=== PATIENT | male | born 1930 | race Caucasian/White ===

== ENCOUNTER 2017-03-16 19:41 | Inpatient (IN) | payer MEDICARE, MEDICAID ==
--- NOTE | 2017-03-16 20:08 | EDM.PDOC ---
[id number] injury Time Seen by Provider: 03/16/17 20:00 Source of Information: Reports: Patient, EMS History Limitations: Reports: No Limitations - History of Present Illness INITIAL COMMENTS - FREE TEXT/NARRATIVE: 86-year-old male who apparently has been weaker over the past 2 days was in his bathroom when he became too weak to stand. He felt himself falling so he lowered himself to the floor slowly and did not get hurt. He was unable to get up however and his niece found him after 15 minutes on the floor. The ambulance was called. She thinks he has worsened left-sided facial weakness and dysarthria, however he does not have his dentures in. He denies any pain, injury, shortness or breath but has had some nausea. He is now oriented and denies any symptoms. His O2 saturations are only 85% on room air. His chest does sound congested. He also seems to have a strong odor to the urine. He was incontinent while on the floor. Severity: Moderate Associated Symptoms: Reports: Cough, Malaise, Nausea/Vomiting, Weakness. Denies : Chest Pain, Fever/Chills, Headaches, Shortness of Breath Denies Pain Score (Numeric/FACES): 0 - Related Data Allergies Allergy/AdvReac Type Severity Reaction Status Date / Time Cephalosporins Allergy Hives Verified 03/16/17 19:46 codeine Allergy Hives Verified 03/16/17 19:46 Penicillins Allergy Hives Verified 03/16/17 19:46 dicydonine Allergy Cannot Uncoded 03/16/17 19:46 Remember Home Meds: Home Meds Aspirin 325 mg PO DAILY 01/09/14 [History] DULoxetine [Cymbalta] 60 mg PO DAILY 01/09/14 [History] Digoxin 0.125 mg PO DAILY 01/09/14 [History] Docusate Sodium [Colace] 1 - 3 cap PO ASDIRECTED PRN 01/09/14 [History] Doxazosin [Cardura] 1 mg PO DAILY 01/09/14 [History] Furosemide 10 mg PO DAILY 01/09/14 [History] Lisinopril 5 mg PO DAILY 01/09/14 [History] Nitroglycerin [Nitrostat] 0.4 mg SL ASDIRECTED 01/09/14 [History] Omeprazole 20 mg PO DAILY 01/09/14 [History] Warfarin [Coumadin] 7 mg PO ASDIRECTED 01/09/14 [History] Warfarin [Coumadin] 8 mg PO ASDIRECTED 01/09/14 [History] atorvaSTATin [Lipitor] 40 mg PO BEDTIME 01/09/14 [History] Canagliflozin [Invokana] 300 mg PO DAILY 05/03/15 [History] [place]/Min Oil/Claudine/Wool Alcoh [Eucerin Creme] 1 applic TOP TID PRN 05/03/15 [ History] Linagliptin [Tradjenta] 5 mg PO DAILY 05/03/15 [History] Tamsulosin [Flomax] 0.4 mg PO DAILY 05/03/15 [History] Triamcinolone Acetonide [Triamcinolone Acetonide 0.1% Crm] 1 applic TOP TID PRN 05/03/15 [History] metFORMIN [Glucophage] 500 mg PO BID 05/03/15 [History] Omeprazole 20 mg PO DAILY 03/16/17 [History] Papaya [Papaya Enzyme] 2 each PO TID 03/16/17 [History] Past Medical History Cardiovascular History: Reports: Afib, Hypertension Musculoskeletal History: Reports: Arthritis Endocrine/Metabolic History: Reports: Diabetes, Type II Other Dermatologic History: light red rash noted to left lower leg - Past Surgical History Other Cardiovascular Surgeries/Procedures: Pacemaker Social & Family History - Tobacco Use Smoking Status *Q: Never Smoker Second Hand Smoke Exposure: No - Caffeine Use Caffeine Use: Reports: Coffee - Alcohol Use Days Per Week of Alcohol Use: 0 - Recreational Drug Use Recreational Drug Use: No ED ROS GENERAL - Review of Systems Review Of Systems: See Below Constitutional: Reports: Malaise, Weakness. Denies: Fever, Chills HEENT: Reports: Other (Left facial drooping more pronounced than baseline, dysarthria) Respiratory: Reports: Cough. Denies: Shortness of Breath Cardiovascular: Denies: Chest Pain GI/Abdominal: Reports: Nausea. Denies: Abdominal Pain, Vomiting : Reports: Other (Patient denies symptoms but he has a strong urine odor) Skin: Reports: No Symptoms Neurological: Reports: Other (Weakness, near-syncope, dysarthria and left-sided weakness) Psychiatric: Reports: No Symptoms ED EXAM, GENERAL - Physical Exam Exam: See Below Exam Limited By: No Limitations General Appearance: Alert, No Apparent Distress Eye Exam: Bilateral Eye: EOMI Throat/Mouth: Other (There is some noticeable left-sided perioral weakness and drooping but this may be baseline) Head: Atraumatic Neck: Non-Tender Respiratory/Chest: No Respiratory Distress, Rales (Perihilar rales are heard bilateral) Cardiovascular: Regular Rate, Rhythm GI/Abdominal: Soft, Non-Tender Extremities: Pedal Edema (Just a trace of ankle edema bilateral, symmetric) Neurological: Alert, Oriented Psychiatric: Flat Affect Skin Exam: Warm, Dry Course - Vital Signs Last Recorded V/S: Last Vital Signs Temp 101.1 F H 03/16/17 23:39 Pulse 61 03/16/17 22:47 Resp 22 H 03/16/17 22:47 BP 147/82 H 03/16/17 22:47 Pulse Ox 93 L 03/16/17 22:47 - Orders/Labs/Meds Orders: Active Orders 24 hr Category Date Time Status Chest 1V Frontal [CR] Stat Exams 03/16/17 19:55 Taken Head wo Cont [CT] Stat Exams 03/16/17 19:58 Taken Medication Orders Acetaminophen (Tylenol) 650 mg PO Q4H PRN PRN Reason: Pain/Fever Last Admin: 03/16/17 23:39 Dose: 650 mg Aspirin (Ecotrin) 325 mg PO DAILY [facility] Last Admin: 03/16/17 22:54 Dose: Atorvastatin Calcium (Lipitor) 40 mg PO BEDTIME [facility] Docusate Sodium (Colace) 100 - 300 mg PO DAILY PRN PRN Reason: Constipation Duloxetine HCl (Cymbalta) 60 mg PO DAILY [facility] Furosemide (Lasix) 10 mg PO DAILY [facility] Azithromycin 500 mg/ Sodium (Chloride) 250 mls @ 250 mls/hr IV Q24H [facility] Levofloxacin/Dextrose 500 mg/ (Premix) 100 mls @ 100 mls/hr IV Q24H [facility] Last Admin: 03/16/17 23:58 Dose: 100 mls/hr Linagliptin (Tradjenta) 5 mg PO DAILY [facility] Lisinopril (Prinivil) 5 mg PO DAILY [facility] Metformin HCl (Glucophage) 500 mg PO BIDMEALS [facility] Nitroglycerin (Nitrostat) 0.4 mg SL ASDIRECTED PRN PRN Reason: Chest Pain Non-Formulary Medication (Canagliflozin [Invokana]) 300 mg PO DAILY JOHN Non-Formulary Medication ([place]/Min Oil/Claudine/Wool Alcoh [Eucerin Creme]) 1 applic TOP TID PRN PRN Reason: Rash Non-Formulary Medication (Doxazosin [Cardura]) 1 mg PO DAILY JOHN Non-Formulary Medication (Papaya [Papaya Enzyme]) 2 each PO TID JOHN Pantoprazole Sodium (Protonix) 40 mg PO ACBREAKFAST JOHN Sodium Chloride (Saline Flush) 10 ml FLUSH ASDIRECTED PRN PRN Reason: Keep Vein Open Tamsulosin HCl (Flomax) 0.4 mg PO DAILY JOHN Triamcinolone Acetonide (Triamcinolone Acetonide 0.1% Crm) 0 gm TOP TID PRN PRN Reason: Rash Warfarin Sodium (Coumadin) 8 mg PO ASDIRECTED JOHN Warfarin Sodium (Coumadin) 7 mg PO ASDIRECTED JOHN Labs: Laboratory Tests 03/16/17 03/16/17 03/16/17 Range/Units 20:08 20:08 20:32 WBC 11.1 H (4.5-11.0) K/uL RBC 5.48 (4.30-5.90) M/uL Hgb 16.4 H (12.0-15.0) g/dL Hct 47.5 (40.0-54.0) % MCV 87 (80-98) fL MCH 30 (27-31) pg MCHC 35 (32-36) % Plt Count 158 (150-400) K/uL Neut % (Auto) 86 H (36-66) % Lymph % (Auto) 5 L (24-44) % [place] % (Auto) 9 H (2-6) % Eos % (Auto) 0 L (2-4) % Baso % (Auto) 1 (0-1) % Sodium 136 L (140-148) mmol/L Potassium 4.3 (3.6-5.2) mmol/L Chloride 98 L (100-108) mmol/L Carbon Dioxide 25 (21-32) mmol/L Anion Gap 17.3 H (5.0-14.0) mmol/L BUN 22 H (7-18) mg/dL Creatinine 1.3 (0.8-1.3) mg/dL Est Cr Clr Drug Dosing 44.77 mL/min Estimated GFR (MDRD) 52 L (>60) Glucose 238 H (74-106) mg/dL Calcium 9.0 (8.5-10.1) mg/dL Total Bilirubin 1.2 H (0.2-1.0) mg/dL AST 30 (15-37) U/L ALT 42 (12-78) U/L Alkaline Phosphatase 116 (46-116) U/L Troponin I 0.129 H* (0.000-0.056) ng/mL Total Protein 8.2 (6.4-8.2) g/dL Albumin 3.8 (3.4-5.0) g/dL Globulin 4.4 H (2.3-3.5) g/dL Albumin/Globulin Ratio 0.9 L (1.2-2.2) Urine Color Yellow Urine Appearance Cloudy Urine pH 5.0 (4.5-8.0) Ur Specific [place] 1.015 (1.008-1.030) Urine Protein Negative (NEGATIVE) mg/dL Urine Glucose (UA) 1000 H (NEGATIVE) mg/dL Urine Ketones 15 H (NEGATIVE) mg/dL Urine Occult Blood Negative (NEGATIVE) Urine Nitrite Negative (NEGAITVE) Urine Bilirubin Negative (NEGATIVE) Urine Urobilinogen Normal (NORMAL) mg/dL Ur Leukocyte Esterase Negative (NEGATIVE) Urine RBC 0-5 (0-5) Urine WBC 0-5 (0-5) Ur Epithelial Cells Few Amorphous Sediment Many Urine Bacteria Moderate Urine Mucus Not seen Meds: Medications Generic Name Dose Route Start Last Admin Trade Name Freq PRN Reason Stop Dose Admin Acetaminophen 650 mg 03/16/17 23:13 03/16/17 23:39 Tylenol PO 650 mg Q4H PRN Administration Pain/Fever Aspirin 325 mg 03/16/17 22:00 03/16/17 22:54 Ecotrin PO Not Given DAILY [facility] Atorvastatin Calcium 40 mg 03/17/17 21:00 Lipitor PO BEDTIME [facility] Docusate Sodium 100 - 300 mg 03/16/17 21:15 Colace PO DAILY PRN Constipation Duloxetine HCl 60 mg 03/17/17 09:00 Cymbalta PO DAILY [facility] Furosemide 10 mg 03/17/17 09:00 Lasix PO DAILY [facility] Azithromycin 500 mg/ Sodium 250 mls @ 250 mls/hr 03/17/17 01:00 Chloride IV Q24H [facility] Levofloxacin/Dextrose 500 mg/ 100 mls @ 100 mls/hr 03/17/17 00:00 03/16/17 23 :58 Premix IV 100 mls/hr Q24H [facility] Administration Linagliptin 5 mg 03/17/17 09:00 Tradjenta PO DAILY [facility] Lisinopril 5 mg 03/17/17 09:00 Prinivil PO DAILY [facility] Metformin HCl 500 mg 03/17/17 08:00 Glucophage PO BIDMEALS [facility] Nitroglycerin 0.4 mg 03/16/17 21:15 Nitrostat SL ASDIRECTED PRN Chest Pain Non-Formulary Medication 300 mg 03/17/17 09:00 Canagliflozin [Invokana] PO DAILY [facility] Non-Formulary Medication 1 applic 03/16/17 21:15 [place]/Min Oil/Claudine/Wool Alcoh [Eucerin Creme] TOP TID PRN Rash Non-Formulary Medication 1 mg 03/17/17 09:00 Doxazosin [Cardura] PO DAILY [facility] Non-Formulary Medication 2 each 03/17/17 09:00 Papaya [Papaya Enzyme] PO TID [facility] Pantoprazole Sodium 40 mg 03/17/17 07:30 Protonix PO ACBREAKFAST [facility] Sodium Chloride 10 ml 03/16/17 21:07 Saline Flush FLUSH ASDIRECTED PRN Keep Vein Open Tamsulosin HCl 0.4 mg 03/17/17 09:00 Flomax PO DAILY [facility] Triamcinolone Acetonide 0 gm 03/16/17 21:15 Triamcinolone Acetonide 0.1% Crm TOP TID PRN Rash Warfarin Sodium 8 mg 03/16/17 21:15 Coumadin PO ASDIRECTED JOHN Warfarin Sodium 7 mg 03/16/17 21:15 Coumadin PO ASDIRECTED [facility] Discontinued Medications Generic Name Dose Route Start Last Admin Trade Name Freq PRN Reason Stop Dose Admin Digoxin 125 mcg 03/17/17 09:00 Lanoxin PO DAILY [facility] Non-Formulary Medication 20 mg 03/17/17 09:00 Omeprazole [Omeprazole] PO DAILY [facility] - Re-Assessments/Exams Free Text/Narrative Re-Assessment/Exam: 03/16/17 20:08 Portable chest x-ray was obtained which showed cardiomegaly but no infiltrate. CBC, CMP, troponin and UA were obtained, and a CT of head without contrast. 03/16/17 20:53 Troponin was elevated at 0.12. Glucose is 238. Urine showed glucose but no infection. CT of his head showed no acute findings. I discussed his condition with Dr. Clark, his primary provider and he agreed to admit him to follow serial troponins and observe him for any changes. Departure - Departure Time of Disposition: 23:08 Disposition: Admitted As Inpatient 66 Condition: fair Clinical Impression: High blood sugar, Elevated troponin level, Weakness generalized - Discharge Information - My Orders Last 24 Hours: My Active Orders 03/16/17 19:55 Chest 1V Frontal [CR] Stat 03/16/17 19:58 Head wo Cont [CT] Stat - Assessment/Plan Last 24 Hours: My Active Orders 03/16/17 19:55 Chest 1V Frontal [CR] Stat 03/16/17 19:58 Head wo Cont [CT] Stat
[2017-03-16] MEDS ORDERED: Sodium Chloride 0.9% 10 ML Syringe FLUSH PRN (21:07)
[2017-03-16] MEDS ORDERED: Nitroglycerin 0.4 MG Tab.SL SL PRN (21:15)
[2017-03-16] MEDS ORDERED: Docusate Sodium 100 MG Cap PO PRN (21:15)
[2017-03-16] MEDS ORDERED: Warfarin 3 MG Tab PO SCH (21:15)
[2017-03-16] MEDS ORDERED: [UNRECOGNIZED DRUG - OTHER] TOP PRN (21:15)
[2017-03-16] MEDS ORDERED: Triamcinolone Acetonide 0.1% Crm 15 GM Tube TOP PRN (21:15)
--- NOTE | 2017-03-16 21:26 | PCM.HP ---
H&P History of Present Illness - General Date of Service: 03/05/17 Admit Problem/Dx: Admission Diagnosis/Problem Admission Diagnosis/Problem Weakness Source of Information: Patient - History of Present Illness Initial Comments - Free Text/Narative: Alexandra comes in because of generalized weakness and had fallen at home. He did not faint but was weak. While in the ER he was found to have an elevation of Trop. and was admitted as he was too weak to go home. He is a DNR. He was unsafe to care for himself at home. I had seen him earlier today and was incontinent of urine. Onset of Symptoms: Reports: Gradual Duration of Symptoms: Reports: Day(s): Associated Symptoms: Reports: Weakness Denies Pain Score (Numeric/FACES): 0 - Related Data Allergies/Adverse Reactions: Allergies Allergy/AdvReac Type Severity Reaction Status Date / Time Cephalosporins Allergy Hives Verified 03/16/17 19:46 codeine Allergy Hives Verified 03/16/17 19:46 Penicillins Allergy Hives Verified 03/16/17 19:46 dicydonine Allergy Cannot Uncoded 03/16/17 19:46 Remember Home Medications: Home Meds Aspirin 325 mg PO DAILY 01/09/14 [History] DULoxetine [Cymbalta] 60 mg PO DAILY 01/09/14 [History] Digoxin 0.125 mg PO DAILY 01/09/14 [History] Docusate Sodium [Colace] 1 - 3 cap PO ASDIRECTED PRN 01/09/14 [History] Doxazosin [Cardura] 1 mg PO DAILY 01/09/14 [History] Furosemide 10 mg PO DAILY 01/09/14 [History] Lisinopril 5 mg PO DAILY 01/09/14 [History] Nitroglycerin [Nitrostat] 0.4 mg SL ASDIRECTED 01/09/14 [History] Omeprazole 20 mg PO DAILY 01/09/14 [History] Warfarin [Coumadin] 7 mg PO ASDIRECTED 01/09/14 [History] Warfarin [Coumadin] 8 mg PO ASDIRECTED 01/09/14 [History] atorvaSTATin [Lipitor] 40 mg PO BEDTIME 01/09/14 [History] Canagliflozin [Invokana] 300 mg PO DAILY 05/03/15 [History] [place]/Min Oil/Claudine/Wool Alcoh [Eucerin Creme] 1 applic TOP TID PRN 05/03/15 [ History] Linagliptin [Tradjenta] 5 mg PO DAILY 05/03/15 [History] Tamsulosin [Flomax] 0.4 mg PO DAILY 05/03/15 [History] Triamcinolone Acetonide [Triamcinolone Acetonide 0.1% Crm] 1 applic TOP TID PRN 05/03/15 [History] metFORMIN [Glucophage] 500 mg PO BID 05/03/15 [History] Omeprazole 20 mg PO DAILY 03/16/17 [History] Papaya [Papaya Enzyme] 2 each PO TID 03/16/17 [History] Past Medical History HEENT History: 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, Impaired Vision Other HEENT History: Hearing aide Cardiovascular History: Reports: Afib, Hypertension Other Cardiovascular History: cardiac dysrhythmias Musculoskeletal History: Reports: Arthritis Endocrine/Metabolic History: Reports: Diabetes, Type II Other Dermatologic History: light red rash noted to left lower leg - Infectious Disease History Infectious Disease History: Reports: C-Difficile, Measles, Mumps - Past Surgical History Other Cardiovascular Surgeries/Procedures: Pacemaker Social & Family History - Tobacco Use Smoking Status *Q: Never Smoker Second Hand Smoke Exposure: No - Caffeine Use Caffeine Use: Reports: Coffee - Alcohol Use Days Per Week of Alcohol Use: 0 - Recreational Drug Use Recreational Drug Use: No H&P Review of Systems - Review of Systems: Review Of Systems: See Below General: Reports: Weakness, Fatigue HEENT: Reports: No Symptoms Pulmonary: Reports: Shortness of Breath Cardiovascular: Reports: Dyspnea on Exertion, Lightheadedness Gastrointestinal: Reports: No Symptoms Genitourinary: Reports: Incontinence Neurological: Reports: Dizziness Exam - Exam Exam: See Below - Vital Signs Vital Signs: Last Vital Signs Temp 97.9 F 03/16/17 20:44 Pulse 60 03/16/17 21:00 Resp 22 H 03/16/17 21:00 BP 157/56 H 03/16/17 21:00 Pulse Ox 91 L 03/16/17 21:00 Weight: 214 lb - Exam General: Alert, Oriented, Cooperative, Mild Distress HEENT: PERRLA Neck: Supple, Trachea Midline, 2 Lungs: Clear to Auscultation, Normal Respiratory Effort Abdomen: Normal Bowel Sounds, Soft Extremities: Edema Peripheral Pulses: 1+: Radial (L), Radial (R) Skin: Warm, Dry, Intact Neurological: Cranial Nerves Intact, Reflexes Equal Bilateral Neuro Extensive - Mental Status: Alert, Oriented x3, Normal Cognition DTR: 1+: Bicep (L), Bicep (R) Psychiatric: Normal Affect, Labile Mood - Patient Data Lab Results last 24 hrs: Laboratory Results - last 24 hr 03/16/17 03/16/17 03/16/17 Range/Units 20:08 20:08 20:32 WBC 11.1 H (4.5-11.0) K/uL RBC 5.48 (4.30-5.90) M/uL Hgb 16.4 H (12.0-15.0) g/dL Hct 47.5 (40.0-54.0) % MCV 87 (80-98) fL MCH 30 (27-31) pg MCHC 35 (32-36) % Plt Count 158 (150-400) K/uL Neut % (Auto) 86 H (36-66) % Lymph % (Auto) 5 L (24-44) % [place] % (Auto) 9 H (2-6) % Eos % (Auto) 0 L (2-4) % Baso % (Auto) 1 (0-1) % Sodium 136 L (140-148) mmol/L Potassium 4.3 (3.6-5.2) mmol/L Chloride 98 L (100-108) mmol/L Carbon Dioxide 25 (21-32) mmol/L Anion Gap 17.3 H (5.0-14.0) mmol/L BUN 22 H (7-18) mg/dL Creatinine 1.3 (0.8-1.3) mg/dL Est Cr Clr Drug Dosing 44.77 mL/min Estimated GFR (MDRD) 52 L (>60) Glucose 238 H (74-106) mg/dL Calcium 9.0 (8.5-10.1) mg/dL Total Bilirubin 1.2 H (0.2-1.0) mg/dL AST 30 (15-37) U/L ALT 42 (12-78) U/L Alkaline Phosphatase 116 (46-116) U/L Troponin I 0.129 H* (0.000-0.056) ng/mL Total Protein 8.2 (6.4-8.2) g/dL Albumin 3.8 (3.4-5.0) g/dL Globulin 4.4 H (2.3-3.5) g/dL Albumin/Globulin Ratio 0.9 L (1.2-2.2) Urine Color Yellow Urine Appearance Cloudy Urine pH 5.0 (4.5-8.0) Ur Specific [place] 1.015 (1.008-1.030) Urine Protein Negative (NEGATIVE) mg/dL Urine Glucose (UA) 1000 H (NEGATIVE) mg/dL Urine Ketones 15 H (NEGATIVE) mg/dL Urine Occult Blood Negative (NEGATIVE) Urine Nitrite Negative (NEGAITVE) Urine Bilirubin Negative (NEGATIVE) Urine Urobilinogen Normal (NORMAL) mg/dL Ur Leukocyte Esterase Negative (NEGATIVE) Urine RBC 0-5 (0-5) Urine WBC 0-5 (0-5) Ur Epithelial Cells Few Amorphous Sediment Many Urine Bacteria Moderate Urine Mucus Not seen Result Diagrams: 03/16/17 20:08 03/16/17 20:08 *Q Meaningful Use (ADM) - VTE *Q VTE Criteria *Q: - Stroke *Q Stroke Criteria *Q: - AMI *Q AMI Criteria *Q: Problem List Initiated/Reviewed/Updated: Yes Orders Last 24hrs: Active Orders 24 hr Category Date Time Status Patient Status [ADT] Routine ADT 03/16/17 21:07 Ordered Ambulate [RC] QID Care 03/16/17 21:07 Ordered Blood Glucose Check, Bedside [RC] QIDACANDBED Care 03/16/17 21:07 Ordered Height and Weight [RC] DAILY Care 03/16/17 21:07 Ordered Intake and Output [RC] QSHIFT Care 03/16/17 21:10 Ordered Oxygen Therapy [RC] PRN Care 03/16/17 21:07 Ordered Up ad [place] [RC] ASDIRECTED Care 03/16/17 21:07 Ordered Up to Chair [RC] QID Care 03/16/17 21:07 Ordered VTE/DVT Education [RC] Per Unit Routine Care 03/16/17 21:07 Ordered Vital Signs [RC] Q4H Care 03/16/17 21:07 Ordered PT Evaluation and Treatment [CONS] Routine Cons 03/16/17 21:07 Ordered Consistent Carbohydrate Diet [DIET] Diet 03/17/17 Breakfast Ordered Chest 1V Frontal [CR] Stat Exams 03/16/17 19:55 Taken Head wo Cont [CT] Stat Exams 03/16/17 19:58 Taken CK W CKMB [CHEM] Routine Lab 03/17/17 05:11 Ordered TROPONIN I [CHEM] Routine Lab 03/17/17 05:11 Ordered Aspirin [Aspirin] Med 03/17/17 09:00 Ordered 325 mg PO DAILY Canagliflozin [Invokana] Med 03/17/17 09:00 Ordered 300 mg PO DAILY [place]/Min Oil/Claudine/Wool Alcoh [Eucerin Creme] Med 03/16/17 21:15 Ordered 1 applic TOP TID PRN DULoxetine [Cymbalta] Med 03/17/17 09:00 Ordered 60 mg PO DAILY Digoxin [Lanoxin] Med 03/17/17 09:00 Ordered 125 mcg PO DAILY Docusate Sodium [Colace] Med 03/16/17 21:15 Ordered 1 - 3 cap PO DAILY PRN Doxazosin [Cardura] Med 03/17/17 09:00 Ordered 1 mg PO DAILY Furosemide [Lasix] Med 03/17/17 09:00 Ordered 10 mg PO DAILY Linagliptin Med 03/17/17 09:00 Ordered 5 mg PO DAILY Lisinopril [Prinivil] Med 03/17/17 09:00 Ordered 5 mg PO DAILY Nitroglycerin [Nitrostat] Med 03/16/17 21:15 Ordered 0.4 mg SL ASDIRECTED Omeprazole [Omeprazole] Med 03/17/17 09:00 Ordered 20 mg PO DAILY Omeprazole [Omeprazole] Med 03/17/17 09:00 Ordered 20 mg PO DAILY Papaya [Papaya Enzyme] Med 03/17/17 09:00 Ordered 2 each PO TID Sodium Chloride 0.9% [Saline Flush] Med 03/16/17 21:07 Ordered 10 ml FLUSH ASDIRECTED PRN Tamsulosin [Flomax] Med 03/17/17 09:00 Ordered 0.4 mg PO DAILY Triamcinolone Acetonide [Triamcinolone Acetonide 0.1% Med 03/16/17 21:15 Ordered Crm] 1 applic TOP TID PRN Warfarin [Coumadin] Med 03/16/17 21:15 Ordered 7 mg PO ASDIRECTED Warfarin [Coumadin] Med 03/16/17 21:15 Ordered 8 mg PO ASDIRECTED atorvaSTATin [Lipitor] Med 03/17/17 21:00 Ordered 40 mg PO BEDTIME metFORMIN [Glucophage] Med 03/17/17 09:00 Ordered 500 mg PO BID Saline Lock Insert [OM.PC] Routine Oth 03/16/17 21:07 Ordered Resuscitation Status Routine Resus Stat 03/16/17 21:07 Ordered Medication Orders Digoxin (Lanoxin) 125 mcg PO DAILY JOHN Docusate Sodium (Colace) mg PO DAILY PRN PRN Reason: Constipation Furosemide (Lasix) 10 mg PO DAILY JOHN Lisinopril (Prinivil) 5 mg PO DAILY JOHN Metformin HCl (Glucophage) 500 mg PO BID JOHN Nitroglycerin (Nitrostat) 0.4 mg SL ASDIRECTED JOHN Non-Formulary Medication (Aspirin [Aspirin]) 325 mg PO DAILY JOHN Non-Formulary Medication (Canagliflozin [Invokana]) 300 mg PO DAILY JOHN Non-Formulary Medication ([place]/Min Oil/Claudine/Wool Alcoh [Eucerin Creme]) 1 applic TOP TID PRN PRN Reason: Rash Non-Formulary Medication (Duloxetine [Cymbalta]) 60 mg PO DAILY JOHN Non-Formulary Medication (Doxazosin [Cardura]) 1 mg PO DAILY JOHN Non-Formulary Medication (Linagliptin) 5 mg PO DAILY JOHN Non-Formulary Medication (Omeprazole [Omeprazole]) 20 mg PO DAILY JOHN Non-Formulary Medication (Omeprazole [Omeprazole]) 20 mg PO DAILY JOHN Non-Formulary Medication (Papaya [Papaya Enzyme]) 2 each PO TID JOHN Non-Formulary Medication (Atorvastatin [Lipitor]) 40 mg PO BEDTIME [facility] Sodium Chloride (Saline Flush) 10 ml FLUSH ASDIRECTED PRN PRN Reason: Keep Vein Open Tamsulosin HCl (Flomax) 0.4 mg PO DAILY [facility] Triamcinolone Acetonide (Triamcinolone Acetonide 0.1% Crm) gm TOP TID PRN PRN Reason: Rash Warfarin Sodium (Coumadin) 8 mg PO ASDIRECTED JOHN Warfarin Sodium (Coumadin) 7 mg PO ASDIRECTED JOHN Assessment/Plan Comment:: Assessment/Plan: #1. ASHD. Trop is elevated and will repeat every 8 hrs times 2 more. #2. Generalized weakness: This is a chronic condition. #3. UTI. Urine showed bacteria and a culture is pending. Have also done blood cultures. #4. DM II. Will continue with the medicine. Has been poor control and gave earlier one injection of Trulicity. #5. Atrial Fib. This is chronic will continue with Coumadin. #6. HTN: Will continue with meds for blood pressure control. #7. COPD: Continue with meds. #8. HLD: Continue with same meds as cholesterol is stable, Lipitor #9. BPH: Chronic continue with the medicine. Will check residual of urine. #10. DJD: No med changes #11. Obesity: Will advise to lose wt. but it has been a struggle.
[2017-03-16] MEDS: Aspirin 325 MG Tab.EC PO SCH (22:54)
[2017-03-16] MEDS ORDERED: Acetaminophen 325 MG Tab PO PRN (23:13)
[2017-03-16] MEDS: Levofloxacin/Dextrose 5%-Water 500 MG in Premix Bag 1 BAG IV SCH (23:58)
[2017-03-17] MEDS: Azithromycin 500 MG in Sodium Chloride 0.9% 250 ML IV SCH (01:11)
[2017-03-17] MEDS ORDERED: Mineral Oil/White Petrolatum Crm 113 GM Jar TOP PRN (07:19)
--- NOTE | 2017-03-17 08:25 | CR ---
Chest 1V Frontal HISTORY: syncope COMPARISON: 07/16/2015 FINDINGS: Lungs appear clear and normally aerated. There is generalized cardiomegaly. Old median sternotomy ch anges and multiple mediastinal surgical clips are noted. Prosthetic heart valve is noted. Pacemaker generator overlies the left upper chest. Atrial and ventricular lead wires are intact and stable. No vascular redistribution or pleural fluid can be seen. Bony structures and soft tissues are unremark able. IMPRESSION: Mild cardiomegaly without evidence for decompensation. Old median sternotomy changes and prosthetic heart valve. Stable pacemaker and lead wires. No other acute chest abnormality is identified.
[2017-03-17] MEDS: Doxazosin 4 MG Tab PO SCH (08:32)
[2017-03-17] MEDS: Lisinopril 5 MG Tab PO SCH (08:32)
[2017-03-17] MEDS: Pantoprazole 40 MG Tab.CR PO SCH (08:33)
[2017-03-17] MEDS: metFORMIN 500 MG Tab PO SCH ×2 (08:33→17:18)
[2017-03-17] MEDS: Tamsulosin 0.4 MG Cap.ER PO SCH (08:33)
[2017-03-17] MEDS: DULoxetine 30 MG Cap PO SCH (08:33)
[2017-03-17] MEDS: Furosemide 20 MG Tab PO SCH (08:33)
[2017-03-17] MEDS: Aspirin 325 MG Tab.EC PO SCH (08:33)
[2017-03-17] MEDS ORDERED: PAPAYA PO SCH (09:00)
[2017-03-17] MEDS ORDERED: Digoxin 125 MCG Tab PO SCH (09:00)
[2017-03-17] MEDS ORDERED: DOXAZOSIN 1 MG PO SCH (09:00)
[2017-03-17] MEDS ORDERED: Non-Formulary Medication 1 Each (Canagliflozin [Invokana] 300 MG) PO SCH (09:00)
[2017-03-17] MEDS ORDERED: Non-Formulary Medication 1 Each (Omeprazole [Omeprazole] 20 MG) PO SCH (09:00)
[2017-03-17] MEDS ORDERED: Furosemide 20 MG/2 ML VIAL IVPUSH ONE (16:00)
[2017-03-17] MEDS: atorvaSTATin 20 MG Tab PO SCH (20:47)
[2017-03-17] MEDS: Albuterol/Ipratropium 3.0-0.5 MG/3 ML Neb Soln NEB PRN (20:52)
--- NOTE | 2017-03-17 22:22 | PCM.PN ---
- General Info Date of Service: 03/17/17 Admission Dx/Problem (Free Text): He did have shortness of breath this PM. He wants to go the the [place] when time for discharge. - Review of Systems General: Reports: Weakness HEENT: Reports: no symptoms Pulmonary: Reports: shortness of breath, cough Cardiovascular: Reports: Dyspnea on Exertion Gastrointestinal: Reports: Decreased appetite Musculoskeletal: Reports: joint pain Skin: Reports: no symptoms Neurological: Reports: Gait Disturbance - Patient Data Vitals - most recent: Last Vital Signs Temp 100.7 F H 03/17/17 19:00 Pulse 61 03/17/17 19:00 Resp 32 H 03/17/17 19:00 BP 109/59 L 03/17/17 15:26 Pulse Ox 90 L 03/17/17 19:00 Weight - most recent: 214 lb 8 oz I&O - last 24 hours: Intake & Output 03/17/17 03/17/17 03/17/17 06:59 14:59 22:59 Intake Total 2210 2040 240 Balance 2210 2040 240 Lab Results last 24 hrs: Laboratory Results - last 24 hr 03/17/17 03/17/17 03/17/17 Range/Units 04:45 04:45 11:25 WBC (4.5-11.0) K/uL RBC (4.30-5.90) M/uL Hgb (12.0-15.0) g/dL Hct (40.0-54.0) % MCV (80-98) fL MCH (27-31) pg MCHC (32-36) % Plt Count (150-400) K/uL Neut % (Auto) (36-66) % Lymph % (Auto) (24-44) % Grayson % (Auto) (2-6) % Eos % (Auto) (2-4) % Baso % (Auto) (0-1) % PT 21.6 H (9.5-12.0) sec INR 1.99 H (0.80-1.20) Sodium (140-148) mmol/L Potassium (3.6-5.2) mmol/L Chloride (100-108) mmol/L Carbon Dioxide (21-32) mmol/L Anion Gap (5.0-14.0) mmol/L BUN (7-18) mg/dL Creatinine (0.8-1.3) mg/dL Est Cr Clr Drug Dosing mL/min Estimated GFR (MDRD) (>60) Glucose (74-106) mg/dL Calcium (8.5-10.1) mg/dL Creatine Kinase 77 (39-308) U/L CK-MB (CK-2) 0.5 (0-3.6) mg/mL Troponin I 0.168 H* 0.138 H* (0.000-0.056) ng/mL 03/17/17 03/17/17 Range/Units 11:25 11:25 WBC 9.6 (4.5-11.0) K/uL RBC 4.93 (4.30-5.90) M/uL Hgb 15.2 H (12.0-15.0) g/dL Hct 43.0 (40.0-54.0) % MCV 87 (80-98) fL MCH 31 (27-31) pg MCHC 35 (32-36) % Plt Count 136 L (150-400) K/uL Neut % (Auto) 78 H (36-66) % Lymph % (Auto) 9 L (24-44) % Grayson % (Auto) 13 H (2-6) % Eos % (Auto) 0 L (2-4) % Baso % (Auto) 1 (0-1) % PT (9.5-12.0) sec INR (0.80-1.20) Sodium 132 L (140-148) mmol/L Potassium 3.7 (3.6-5.2) mmol/L Chloride 94 L (100-108) mmol/L Carbon Dioxide 26 (21-32) mmol/L Anion Gap 15.7 H (5.0-14.0) mmol/L BUN 32 H (7-18) mg/dL Creatinine 1.4 H (0.8-1.3) mg/dL Est Cr Clr Drug Dosing 41.63 mL/min Estimated GFR (MDRD) 48 L (>60) Glucose 199 H (74-106) mg/dL Calcium 8.1 L (8.5-10.1) mg/dL Creatine Kinase (39-308) U/L CK-MB (CK-2) (0-3.6) mg/mL Troponin I (0.000-0.056) ng/mL Med Orders - Current: Current Medications Acetaminophen (Tylenol) 650 mg PO Q4H PRN PRN Reason: Pain/Fever Last Admin: 03/16/17 23:39 Dose: 650 mg Albuterol/Ipratropium (Duoneb 3.0-0.5 Mg/3 Ml) 3 ml NEB Q4H PRN PRN Reason: Shortness of Breath Last Admin: 03/17/17 20:52 Dose: 3 ml Aspirin (Ecotrin) 325 mg PO DAILY [facility] Last Admin: 03/17/17 08:33 Dose: 325 mg Atorvastatin Calcium (Lipitor) 40 mg PO BEDTIME [facility] Last Admin: 03/17/17 20:47 Dose: 40 mg Docusate Sodium (Colace) 100 - 300 mg PO DAILY PRN PRN Reason: Constipation Doxazosin Mesylate (Cardura) 1 mg PO DAILY [facility] Last Admin: 03/17/17 08:32 Dose: 1 mg Duloxetine HCl (Cymbalta) 60 mg PO DAILY [facility] Last Admin: 03/17/17 08:33 Dose: 60 mg Furosemide (Lasix) 10 mg PO DAILY [facility] Last Admin: 03/17/17 08:33 Dose: 10 mg Azithromycin 500 mg/ Sodium (Chloride) 250 mls @ 250 mls/hr IV Q24H [facility] Last Admin: 03/17/17 01:11 Dose: 250 mls/hr Levofloxacin/Dextrose 500 mg/ (Premix) 100 mls @ 100 mls/hr IV Q24H [facility] Last Admin: 03/16/17 23:58 Dose: 100 mls/hr Linagliptin (Tradjenta) 5 mg PO DAILY [facility] Last Admin: 03/17/17 08:31 Dose: 5 mg Lisinopril (Prinivil) 5 mg PO DAILY [facility] Last Admin: 03/17/17 08:32 Dose: 5 mg Metformin HCl (Glucophage) 500 mg PO BIDMEALS [facility] Last Admin: 03/17/17 17:18 Dose: 500 mg Mineral Oil/White Petrolatum (Hydrocerin Crm) 0 gm TOP TID PRN PRN Reason: RASH Nitroglycerin (Nitrostat) 0.4 mg SL ASDIRECTED PRN PRN Reason: Chest Pain Non-Formulary Medication (Canagliflozin [Invokana]) 300 mg PO DAILY [facility] Non-Formulary Medication (Papaya [Papaya Enzyme]) 2 each PO TID [facility] Pantoprazole Sodium (Protonix) 40 mg PO ACBREAKFAST [facility] Last Admin: 03/17/17 08:33 Dose: 40 mg Sodium Chloride (Saline Flush) 10 ml FLUSH ASDIRECTED PRN PRN Reason: Keep Vein Open Tamsulosin HCl (Flomax) 0.4 mg PO DAILY [facility] Last Admin: 03/17/17 08:33 Dose: 0.4 mg Triamcinolone Acetonide (Triamcinolone Acetonide 0.1% Crm) 0 gm TOP TID PRN PRN Reason: Rash Warfarin Sodium 5 mg/ Warfarin (Sodium 2 mg) 7 mg PO SuTuThSa@1300 [facility] Last Admin: 03/17/17 14:10 Dose: 7 mg Warfarin Sodium 5 mg/ Warfarin (Sodium 3 mg) 8 mg PO MoWeFr@1300 [facility] Discontinued Medications Digoxin (Lanoxin) 125 mcg PO DAILY [facility] Furosemide (Lasix) 20 mg IVPUSH ONETIME ONE Stop: 03/17/17 16:01 Last Admin: 03/17/17 16:06 Dose: 20 mg Non-Formulary Medication (Omeprazole [Omeprazole]) 20 mg PO DAILY [facility] Warfarin Sodium (Coumadin) 8 mg PO ASDIRECTED [facility] Warfarin Sodium (Coumadin) 7 mg PO ASDIRECTED [facility] - Exam General: oriented, cooperative, mild distress Neck: supple Lungs: Decreased breath sounds Cardiovascular: Irregular Rhythm Abdomen: bowel sounds present, soft, no tenderness Back Exam: CVA Tenderness (L) Peripheral Pulses: 1+: Radial (L), Radial (R) Skin: warm, dry, intact - Problem List Review Problem List Initiated/Reviewed/Updated: Yes - My Orders Last 24 Hours: My Active Orders 03/16/17 22:00 Aspirin [Ecotrin] 325 mg PO DAILY 03/16/17 23:11 Blood Culture x2 Reflex Set [OM.PC] Urgent 03/16/17 23:13 Acetaminophen [Tylenol] 650 mg PO Q4H PRN 03/16/17 23:20 CULTURE BLOOD [BC] Urgent 03/16/17 23:25 CULTURE BLOOD [BC] Urgent 03/17/17 00:00 Levofloxacin/Dextrose 5%-Water [Levaquin in D5W 500 MG/100 ML] 500 mg Premix Bag 1 bag IV Q24H 03/17/17 01:00 Azithromycin [Zithromax] 500 mg Sodium Chloride 0.9% [Normal Saline] 250 ml IV Q24H 03/17/17 07:19 Mineral Oil/Petrolatum,White [Hydrocerin Crm] 0 gm TOP TID PRN 03/17/17 07:30 Pantoprazole [ProTONIX] 40 mg PO ACBREAKFAST 03/17/17 08:00 metFORMIN [Glucophage] 500 mg PO BIDMEALS 03/17/17 09:00 Canagliflozin [Invokana] 300 mg PO DAILY DULoxetine [Cymbalta] 60 mg PO DAILY Doxazosin [Cardura] 1 mg PO DAILY Furosemide [Lasix] 10 mg PO DAILY Linagliptin [Tradjenta] 5 mg PO DAILY Lisinopril [Prinivil] 5 mg PO DAILY Papaya [Papaya Enzyme] 2 each PO TID Tamsulosin [Flomax] 0.4 mg PO DAILY 03/17/17 13:00 Warfarin [Coumadin] 7 mg PO SuTuThSa@1300 03/17/17 15:39 RT Aerosol Therapy [RC] ASDIRECTED Albuterol/Ipratropium [DuoNeb 3.0-0.5 MG/3 ML] 3 ml NEB Q4H PRN 03/17/17 21:00 atorvaSTATin [Lipitor] 40 mg PO BEDTIME 03/18/17 07:30 GLUCOSE POC LAB TO COLLECT [POC] QIDACANDBED 03/18/17 11:30 GLUCOSE POC LAB TO COLLECT [POC] QIDACANDBED 03/18/17 13:00 Warfarin [Coumadin] 8 mg PO MoWeFr@1300 03/18/17 16:30 GLUCOSE POC LAB TO COLLECT [POC] QIDACANDBED 03/18/17 21:00 GLUCOSE POC LAB TO COLLECT [POC] QIDACANDBED 03/19/17 07:30 GLUCOSE POC LAB TO COLLECT [POC] QIDACANDBED 03/19/17 11:30 GLUCOSE POC LAB TO COLLECT [POC] QIDACANDBED 03/19/17 16:30 GLUCOSE POC LAB TO COLLECT [POC] QIDACANDBED 03/19/17 21:00 GLUCOSE POC LAB TO COLLECT [POC] QIDACANDBED 03/20/17 07:30 GLUCOSE POC LAB TO COLLECT [POC] QIDACANDBED 03/20/17 11:30 GLUCOSE POC LAB TO COLLECT [POC] QIDACANDBED 03/20/17 16:30 GLUCOSE POC LAB TO COLLECT [POC] QIDACANDBED 03/20/17 21:00 GLUCOSE POC LAB TO COLLECT [POC] QIDACANDBED 03/21/17 07:30 GLUCOSE POC LAB TO COLLECT [POC] QIDACANDBED 03/21/17 11:30 GLUCOSE POC LAB TO COLLECT [POC] QIDACANDBED 03/21/17 16:30 GLUCOSE POC LAB TO COLLECT [POC] QIDACANDBED 03/21/17 21:00 GLUCOSE POC LAB TO COLLECT [POC] QIDACANDBED 03/22/17 07:30 GLUCOSE POC LAB TO COLLECT [POC] QIDACANDBED 03/22/17 11:30 GLUCOSE POC LAB TO COLLECT [POC] QIDACANDBED 03/22/17 16:30 GLUCOSE POC LAB TO COLLECT [POC] QIDACANDBED 03/22/17 21:00 GLUCOSE POC LAB TO COLLECT [POC] QIDACANDBED 03/23/17 07:30 GLUCOSE POC LAB TO COLLECT [POC] QIDACANDBED 03/23/17 11:30 GLUCOSE POC LAB TO COLLECT [POC] QIDACANDBED 03/23/17 16:30 GLUCOSE POC LAB TO COLLECT [POC] QIDACANDBED 03/23/17 21:00 GLUCOSE POC LAB TO COLLECT [POC] QIDACANDBED 03/24/17 07:30 GLUCOSE POC LAB TO COLLECT [POC] QIDACANDBED 03/24/17 11:30 GLUCOSE POC LAB TO COLLECT [POC] QIDACANDBED 03/24/17 16:30 GLUCOSE POC LAB TO COLLECT [POC] QIDACANDBED 03/24/17 21:00 GLUCOSE POC LAB TO COLLECT [POC] QIDACANDBED 03/25/17 07:30 GLUCOSE POC LAB TO COLLECT [POC] QIDACANDBED 03/25/17 11:30 GLUCOSE POC LAB TO COLLECT [POC] QIDACANDBED 03/25/17 16:30 GLUCOSE POC LAB TO COLLECT [POC] QIDACANDBED - Plan Plan:: Assessment/Plan: #1. ASHD. Trop is elevated but decreasing. #2. Generalized weakness: This is a chronic condition. #3. UTI. Urine showed bacteria and a culture is pending. Have also done blood cultures. #4. DM II. Will continue with the medicine. Has been poor control and gave earlier one injection of Trulicity. #5. Atrial Fib. This is chronic will continue with Coumadin. #6. HTN: Will continue with meds for blood pressure control. #7. COPD: Continue with meds. I gave him extra Lasix today the reduce his water and decreased the IV fluid. Changed to a saline lock. #8. HLD: Continue with same meds as cholesterol is stable, Lipitor #9. BPH: Chronic continue with the medicine. Will check residual of urine. #10. DJD: No med changes #11. Obesity: Will advise to lose wt. but it has been a struggle.
[2017-03-18] MEDS: Levofloxacin/Dextrose 5%-Water 500 MG in Premix Bag 1 BAG IV SCH (00:07)
[2017-03-18] MEDS: Azithromycin 500 MG in Sodium Chloride 0.9% 250 ML IV SCH (01:12)
[2017-03-18] MEDS: Pantoprazole 40 MG Tab.CR PO SCH (07:08)
[2017-03-18] MEDS: metFORMIN 500 MG Tab PO SCH ×2 (07:08→16:53)
[2017-03-18] MEDS: Albuterol/Ipratropium 3.0-0.5 MG/3 ML Neb Soln NEB PRN (07:53)
[2017-03-18] MEDS: DULoxetine 30 MG Cap PO SCH (09:04)
[2017-03-18] MEDS: Lisinopril 5 MG Tab PO SCH (09:06)
[2017-03-18] MEDS: Tamsulosin 0.4 MG Cap.ER PO SCH (09:06)
[2017-03-18] MEDS: Furosemide 20 MG Tab PO SCH (09:06)
[2017-03-18] MEDS: Doxazosin 4 MG Tab PO SCH (09:07)
[2017-03-18] MEDS: Aspirin 325 MG Tab.EC PO SCH (09:07)
--- NOTE | 2017-03-18 20:03 | PCM.PN ---
- General Info Date of Service: 03/18/17 Functional Status: Reports: pain controlled - Review of Systems General: Reports: Weakness, Fatigue HEENT: Reports: no symptoms Pulmonary: Reports: shortness of breath Cardiovascular: Reports: No Symptoms Gastrointestinal: Reports: No symptoms Genitourinary: Reports: no symptoms Musculoskeletal: Reports: no symptoms Skin: Reports: no symptoms Neurological: Reports: Difficulty Walking Psychiatric: Reports: no symptoms - Patient Data Vitals - most recent: Last Vital Signs Temp 97.3 F 03/18/17 19:00 Pulse 60 03/18/17 19:00 Resp 23 H 03/18/17 19:00 BP 111/57 L 03/18/17 19:00 Pulse Ox 93 L 03/18/17 19:00 Weight - most recent: 210 lb 4.8 oz I&O - last 24 hours: Intake & Output 03/18/17 03/18/17 03/18/17 06:59 14:59 22:59 Intake Total 350 480 240 Output Total 700 250 Balance 350 -220 -10 Lab Results last 24 hrs: Laboratory Results - last 24 hr 03/18/17 03/18/17 Range/Units 05:52 05:52 WBC 9.1 (4.5-11.0) K/uL RBC 5.08 (4.30-5.90) M/uL Hgb 15.2 H (12.0-15.0) g/dL Hct 43.8 (40.0-54.0) % MCV 86 (80-98) fL MCH 30 (27-31) pg MCHC 35 (32-36) % Plt Count 136 L (150-400) K/uL Neut % (Auto) 66 (36-66) % Lymph % (Auto) 17 L (24-44) % [place] % (Auto) 16 H (2-6) % Eos % (Auto) 1 L (2-4) % Baso % (Auto) 1 (0-1) % Sodium 134 L (140-148) mmol/L Potassium 3.8 (3.6-5.2) mmol/L Chloride 97 L (100-108) mmol/L Carbon Dioxide 27 (21-32) mmol/L Anion Gap 13.8 (5.0-14.0) mmol/L BUN 36 H (7-18) mg/dL Creatinine 1.2 (0.8-1.3) mg/dL Est Cr Clr Drug Dosing 48.57 mL/min Estimated GFR (MDRD) 57 L (>60) Glucose 159 H (74-106) mg/dL Calcium 8.0 L (8.5-10.1) mg/dL Troponin I 0.085 H* (0.000-0.056) ng/mL Ananth Results last 24 hrs: Microbiology 03/16/17 23:25 Aerobic Blood Culture - Preliminary Blood - Arm, Left NO GROWTH AFTER 1 DAY Anaerobic Blood Culture - Preliminary NO GROWTH AFTER 1 DAY 03/16/17 23:20 Aerobic Blood Culture - Preliminary Blood - Arm, Left NO GROWTH AFTER 1 DAY Anaerobic Blood Culture - Preliminary NO GROWTH AFTER 1 DAY Med Orders - Current: Current Medications Acetaminophen (Tylenol) 650 mg PO Q4H PRN PRN Reason: Pain/Fever Last Admin: 03/16/17 23:39 Dose: 650 mg Albuterol/Ipratropium (Duoneb 3.0-0.5 Mg/3 Ml) 3 ml NEB Q4H PRN PRN Reason: Shortness of Breath Last Admin: 03/18/17 07:53 Dose: 3 ml Aspirin (Ecotrin) 325 mg PO DAILY [facility] Last Admin: 03/18/17 09:07 Dose: 325 mg Atorvastatin Calcium (Lipitor) 40 mg PO BEDTIME [facility] Last Admin: 03/17/17 20:47 Dose: 40 mg Docusate Sodium (Colace) 100 - 300 mg PO DAILY PRN PRN Reason: Constipation Doxazosin Mesylate (Cardura) 1 mg PO DAILY [facility] Last Admin: 03/18/17 09:07 Dose: 1 mg Duloxetine HCl (Cymbalta) 60 mg PO DAILY [facility] Last Admin: 03/18/17 09:04 Dose: 60 mg Furosemide (Lasix) 10 mg PO DAILY [facility] Last Admin: 03/18/17 09:06 Dose: 10 mg Azithromycin 500 mg/ Sodium (Chloride) 250 mls @ 250 mls/hr IV Q24H [facility] Last Admin: 03/18/17 01:12 Dose: 250 mls/hr Levofloxacin/Dextrose 500 mg/ (Premix) 100 mls @ 100 mls/hr IV Q24H [facility] Last Admin: 03/18/17 00:07 Dose: 100 mls/hr Linagliptin (Tradjenta) 5 mg PO DAILY [facility] Last Admin: 03/18/17 09:05 Dose: 5 mg Lisinopril (Prinivil) 5 mg PO DAILY [facility] Last Admin: 03/18/17 09:06 Dose: 5 mg Metformin HCl (Glucophage) 500 mg PO BIDMEALS [facility] Last Admin: 03/18/17 16:53 Dose: 500 mg Mineral Oil/White Petrolatum (Hydrocerin Crm) 0 gm TOP TID PRN PRN Reason: RASH Nitroglycerin (Nitrostat) 0.4 mg SL ASDIRECTED PRN PRN Reason: Chest Pain Non-Formulary Medication (Canagliflozin [Invokana]) 300 mg PO DAILY [facility] Non-Formulary Medication (Papaya [Papaya Enzyme]) 2 each PO TID [facility] Pantoprazole Sodium (Protonix) 40 mg PO ACBREAKFAST [facility] Last Admin: 03/18/17 07:08 Dose: 40 mg Sodium Chloride (Saline Flush) 10 ml FLUSH ASDIRECTED PRN PRN Reason: Keep Vein Open Tamsulosin HCl (Flomax) 0.4 mg PO DAILY [facility] Last Admin: 03/18/17 09:06 Dose: 0.4 mg Triamcinolone Acetonide (Triamcinolone Acetonide 0.1% Crm) 0 gm TOP TID PRN PRN Reason: Rash Warfarin Sodium 5 mg/ Warfarin (Sodium 2 mg) 7 mg PO SuTuThSa@1300 [facility] Last Admin: 03/17/17 14:10 Dose: 7 mg Warfarin Sodium 5 mg/ Warfarin (Sodium 3 mg) 8 mg PO MoWeFr@1300 [facility] Last Admin: 03/18/17 13:20 Dose: 8 mg Discontinued Medications Digoxin (Lanoxin) 125 mcg PO DAILY [facility] Furosemide (Lasix) 20 mg IVPUSH ONETIME ONE Stop: 03/17/17 16:01 Last Admin: 03/17/17 16:06 Dose: 20 mg Non-Formulary Medication (Omeprazole [Omeprazole]) 20 mg PO DAILY [facility] Warfarin Sodium (Coumadin) 8 mg PO ASDIRECTED [facility] Warfarin Sodium (Coumadin) 7 mg PO ASDIRECTED [facility] - Exam General: alert, oriented HEENT: Pupils equal, Pupils reactive, EOMI, Mucous membr. moist/pink Neck: supple Lungs: Clear to auscultation, Normal respiratory effort Cardiovascular: Irregular Rhythm Peripheral Pulses: 1+: Radial (L), Radial (R) - Problem List Review Problem List Initiated/Reviewed/Updated: Yes - My Orders Last 24 Hours: My Active Orders 03/17/17 21:00 atorvaSTATin [Lipitor] 40 mg PO BEDTIME 03/18/17 13:00 Warfarin [Coumadin] 8 mg PO MoWeFr@1300 03/18/17 21:00 GLUCOSE POC LAB TO COLLECT [POC] QIDACANDBED 03/19/17 07:30 GLUCOSE POC LAB TO COLLECT [POC] QIDACANDBED 03/19/17 11:30 GLUCOSE POC LAB TO COLLECT [POC] QIDACANDBED 03/19/17 16:30 GLUCOSE POC LAB TO COLLECT [POC] QIDACANDBED 03/19/17 21:00 GLUCOSE POC LAB TO COLLECT [POC] QIDACANDBED 03/20/17 07:30 GLUCOSE POC LAB TO COLLECT [POC] QIDACANDBED 03/20/17 11:30 GLUCOSE POC LAB TO COLLECT [POC] QIDACANDBED 03/20/17 16:30 GLUCOSE POC LAB TO COLLECT [POC] QIDACANDBED 03/20/17 21:00 GLUCOSE POC LAB TO COLLECT [POC] QIDACANDBED 03/21/17 07:30 GLUCOSE POC LAB TO COLLECT [POC] QIDACANDBED 03/21/17 11:30 GLUCOSE POC LAB TO COLLECT [POC] QIDACANDBED 03/21/17 16:30 GLUCOSE POC LAB TO COLLECT [POC] QIDACANDBED 03/21/17 21:00 GLUCOSE POC LAB TO COLLECT [POC] QIDACANDBED 03/22/17 07:30 GLUCOSE POC LAB TO COLLECT [POC] QIDACANDBED 03/22/17 11:30 GLUCOSE POC LAB TO COLLECT [POC] QIDACANDBED 03/22/17 16:30 GLUCOSE POC LAB TO COLLECT [POC] QIDACANDBED 03/22/17 21:00 GLUCOSE POC LAB TO COLLECT [POC] QIDACANDBED 03/23/17 07:30 GLUCOSE POC LAB TO COLLECT [POC] QIDACANDBED 03/23/17 11:30 GLUCOSE POC LAB TO COLLECT [POC] QIDACANDBED 03/23/17 16:30 GLUCOSE POC LAB TO COLLECT [POC] QIDACANDBED 03/23/17 21:00 GLUCOSE POC LAB TO COLLECT [POC] QIDACANDBED 03/24/17 07:30 GLUCOSE POC LAB TO COLLECT [POC] QIDACANDBED 03/24/17 11:30 GLUCOSE POC LAB TO COLLECT [POC] QIDACANDBED 03/24/17 16:30 GLUCOSE POC LAB TO COLLECT [POC] QIDACANDBED 03/24/17 21:00 GLUCOSE POC LAB TO COLLECT [POC] QIDACANDBED 03/25/17 07:30 GLUCOSE POC LAB TO COLLECT [POC] QIDACANDBED 03/25/17 11:30 GLUCOSE POC LAB TO COLLECT [POC] QIDACANDBED 03/25/17 16:30 GLUCOSE POC LAB TO COLLECT [POC] QIDACANDBED - Plan Plan:: Assessment/Plan: #1. ASHD. Trop is elevated but decreasing. #2. Generalized weakness: This is a chronic condition. #3. UTI. Urine showed bacteria and a culture is pending. urine repeated tonight culture if needed #4. DM II. Will continue with the medicine. #5. Atrial Fib. This is chronic will continue with Coumadin. #6. HTN: Will continue with meds for blood pressure control. #7. COPD: Continue with meds. I gave him extra Lasix today the reduce his water and decreased the IV fluid. Changed to a saline lock. #8. HLD: Continue with same meds as cholesterol is stable, Lipitor #9. BPH: Chronic continue with the medicine. Will check residual of urine. #10. DJD: No med changes #11. Obesity: Will advise to lose wt. but it has been a struggle.
[2017-03-18] MEDS: atorvaSTATin 20 MG Tab PO SCH (21:59)
[2017-03-19] MEDS: Levofloxacin/Dextrose 5%-Water 500 MG in Premix Bag 1 BAG IV SCH (01:07)
[2017-03-19] MEDS: Azithromycin 500 MG in Sodium Chloride 0.9% 250 ML IV SCH (02:27)
[2017-03-19] MEDS: Pantoprazole 40 MG Tab.CR PO SCH (07:12)
[2017-03-19] MEDS: metFORMIN 500 MG Tab PO SCH (07:13)
--- NOTE | 2017-03-19 07:49 | PCM.PN ---
- General Info Date of Service: 03/19/17 Admission Dx/Problem (Free Text): He is feeling better today and sleeping better. Has no significant cough. Functional Status: Reports: pain controlled - Review of Systems General: Reports: Weakness, Fatigue HEENT: Reports: no symptoms Pulmonary: Reports: cough Cardiovascular: Reports: No Symptoms Gastrointestinal: Reports: No symptoms Genitourinary: Reports: no symptoms Musculoskeletal: Reports: no symptoms Skin: Reports: no symptoms Neurological: Reports: No Symptoms Psychiatric: Reports: no symptoms - Patient Data Vitals - most recent: Last Vital Signs Temp 96.0 F 03/19/17 07:05 Pulse 61 03/19/17 07:05 Resp 18 03/19/17 07:05 BP 139/66 03/19/17 07:05 Pulse Ox 94 L 03/19/17 07:05 Weight - most recent: 210 lb 4.8 oz I&O - last 24 hours: Intake & Output 03/18/17 03/19/17 03/19/17 22:59 06:59 14:59 Intake Total 240 Output Total 250 400 Balance -10 -400 Lab Results last 24 hrs: Laboratory Results - last 24 hr 03/18/17 03/19/17 Range/Units 21:30 04:50 PT 22.2 H (9.5-12.0) sec INR 2.05 H (0.80-1.20) Urine Color Yellow Urine Appearance Clear Urine pH 5.0 (4.5-8.0) Ur Specific [place] 1.020 (1.008-1.030) Urine Protein Negative (NEGATIVE) mg/dL Urine Glucose (UA) 1000 H (NEGATIVE) mg/dL Urine Ketones Negative (NEGATIVE) mg/dL Urine Occult Blood Negative (NEGATIVE) Urine Nitrite Negative (NEGAITVE) Urine Bilirubin Negative (NEGATIVE) Urine Urobilinogen Normal (NORMAL) mg/dL Ur Leukocyte Esterase Negative (NEGATIVE) Urine RBC 0-5 (0-5) Urine WBC 0-5 (0-5) Ur Epithelial Cells Few Amorphous Sediment Few Urine Bacteria Rare Urine Mucus Moderate Ananth Results last 24 hrs: Microbiology 03/16/17 23:25 Aerobic Blood Culture - Preliminary Blood - Arm, Left NO GROWTH AFTER 2 DAYS Anaerobic Blood Culture - Preliminary NO GROWTH AFTER 2 DAYS 03/16/17 23:20 Aerobic Blood Culture - Preliminary Blood - Arm, Left NO GROWTH AFTER 2 DAYS Anaerobic Blood Culture - Preliminary NO GROWTH AFTER 2 DAYS Med Orders - Current: Current Medications Acetaminophen (Tylenol) 650 mg PO Q4H PRN PRN Reason: Pain/Fever Last Admin: 03/16/17 23:39 Dose: 650 mg Albuterol/Ipratropium (Duoneb 3.0-0.5 Mg/3 Ml) 3 ml NEB Q4H PRN PRN Reason: Shortness of Breath Last Admin: 03/18/17 07:53 Dose: 3 ml Aspirin (Ecotrin) 325 mg PO DAILY [facility] Last Admin: 03/18/17 09:07 Dose: 325 mg Atorvastatin Calcium (Lipitor) 40 mg PO BEDTIME [facility] Last Admin: 03/18/17 21:59 Dose: 40 mg Docusate Sodium (Colace) 100 - 300 mg PO DAILY PRN PRN Reason: Constipation Doxazosin Mesylate (Cardura) 1 mg PO DAILY [facility] Last Admin: 03/18/17 09:07 Dose: 1 mg Duloxetine HCl (Cymbalta) 60 mg PO DAILY [facility] Last Admin: 03/18/17 09:04 Dose: 60 mg Furosemide (Lasix) 10 mg PO DAILY [facility] Last Admin: 03/18/17 09:06 Dose: 10 mg Azithromycin 500 mg/ Sodium (Chloride) 250 mls @ 250 mls/hr IV Q24H [facility] Last Admin: 03/19/17 02:27 Dose: 250 mls/hr Levofloxacin/Dextrose 500 mg/ (Premix) 100 mls @ 100 mls/hr IV Q24H [facility] Last Admin: 03/19/17 01:07 Dose: 100 mls/hr Lisinopril (Prinivil) 5 mg PO DAILY [facility] Last Admin: 03/18/17 09:06 Dose: 5 mg Metformin HCl (Glucophage) 500 mg PO BIDMEALS [facility] Last Admin: 03/19/17 07:13 Dose: 500 mg Mineral Oil/White Petrolatum (Hydrocerin Crm) 0 gm TOP TID PRN PRN Reason: RASH Nitroglycerin (Nitrostat) 0.4 mg SL ASDIRECTED PRN PRN Reason: Chest Pain Non-Formulary Medication (Canagliflozin [Invokana]) 300 mg PO DAILY [facility] Non-Formulary Medication (Papaya [Papaya Enzyme]) 2 each PO TID [facility] Pantoprazole Sodium (Protonix) 40 mg PO ACBREAKFAST [facility] Last Admin: 03/19/17 07:12 Dose: 40 mg Sodium Chloride (Saline Flush) 10 ml FLUSH ASDIRECTED PRN PRN Reason: Keep Vein Open Tamsulosin HCl (Flomax) 0.4 mg PO DAILY [facility] Last Admin: 03/18/17 09:06 Dose: 0.4 mg Triamcinolone Acetonide (Triamcinolone Acetonide 0.1% Crm) 0 gm TOP TID PRN PRN Reason: Rash Warfarin Sodium 5 mg/ Warfarin (Sodium 2 mg) 7 mg PO SuTuThSa@1300 [facility] Last Admin: 03/17/17 14:10 Dose: 7 mg Warfarin Sodium 5 mg/ Warfarin (Sodium 3 mg) 8 mg PO MoWeFr@1300 [facility] Last Admin: 03/18/17 13:20 Dose: 8 mg Discontinued Medications Digoxin (Lanoxin) 125 mcg PO DAILY [facility] Furosemide (Lasix) 20 mg IVPUSH ONETIME ONE Stop: 03/17/17 16:01 Last Admin: 03/17/17 16:06 Dose: 20 mg Linagliptin (Tradjenta) 5 mg PO DAILY [facility] Last Admin: 03/18/17 09:05 Dose: 5 mg Non-Formulary Medication (Omeprazole [Omeprazole]) 20 mg PO DAILY [facility] Warfarin Sodium (Coumadin) 8 mg PO ASDIRECTED [facility] Warfarin Sodium (Coumadin) 7 mg PO ASDIRECTED [facility] - Exam General: oriented, no acute distress HEENT: Pupils equal, Pupils reactive, EOMI, Mucous membr. moist/pink Neck: supple Lungs: Clear to auscultation, Normal respiratory effort Cardiovascular: Regular Rate, Regular Rhythm Abdomen: bowel sounds present, soft, no tenderness, no distension Peripheral Pulses: 1+: Radial (L), Radial (R) Skin: warm, dry, intact Neurological: no new focal deficit Psy/Mental Status: alert, normal mood - Problem List Review Problem List Initiated/Reviewed/Updated: Yes - My Orders Last 24 Hours: My Active Orders 03/18/17 13:00 Warfarin [Coumadin] 8 mg PO MoWeFr@1300 03/18/17 20:04 EKG 12 Lead [EK] Routine 03/18/17 20:05 EKG Documentation Completion [RC] ASDIRECTED 03/19/17 07:00 Echo Comp wo Cont [US] Routine 03/19/17 07:42 Ready for Discharge [RC] PER UNIT ROUTINE 03/19/17 09:00 Alogliptin Benzoate [Alogliptin] 12.5 mg PO DAILY 03/19/17 11:30 GLUCOSE POC LAB TO COLLECT [POC] QIDACANDBED 03/19/17 16:30 GLUCOSE POC LAB TO COLLECT [POC] QIDACANDBED 03/19/17 21:00 GLUCOSE POC LAB TO COLLECT [POC] QIDACANDBED 03/20/17 07:30 GLUCOSE POC LAB TO COLLECT [POC] QIDACANDBED 03/20/17 11:30 GLUCOSE POC LAB TO COLLECT [POC] QIDACANDBED 03/20/17 16:30 GLUCOSE POC LAB TO COLLECT [POC] QIDACANDBED 03/20/17 21:00 GLUCOSE POC LAB TO COLLECT [POC] QIDACANDBED 03/21/17 07:30 GLUCOSE POC LAB TO COLLECT [POC] QIDACANDBED 03/21/17 11:30 GLUCOSE POC LAB TO COLLECT [POC] QIDACANDBED 03/21/17 16:30 GLUCOSE POC LAB TO COLLECT [POC] QIDACANDBED 03/21/17 21:00 GLUCOSE POC LAB TO COLLECT [POC] QIDACANDBED 03/22/17 07:30 GLUCOSE POC LAB TO COLLECT [POC] QIDACANDBED 03/22/17 11:30 GLUCOSE POC LAB TO COLLECT [POC] QIDACANDBED 03/22/17 16:30 GLUCOSE POC LAB TO COLLECT [POC] QIDACANDBED 03/22/17 21:00 GLUCOSE POC LAB TO COLLECT [POC] QIDACANDBED 03/23/17 07:30 GLUCOSE POC LAB TO COLLECT [POC] QIDACANDBED 03/23/17 11:30 GLUCOSE POC LAB TO COLLECT [POC] QIDACANDBED 03/23/17 16:30 GLUCOSE POC LAB TO COLLECT [POC] QIDACANDBED 03/23/17 21:00 GLUCOSE POC LAB TO COLLECT [POC] QIDACANDBED 03/24/17 07:30 GLUCOSE POC LAB TO COLLECT [POC] QIDACANDBED 03/24/17 11:30 GLUCOSE POC LAB TO COLLECT [POC] QIDACANDBED 03/24/17 16:30 GLUCOSE POC LAB TO COLLECT [POC] QIDACANDBED 03/24/17 21:00 GLUCOSE POC LAB TO COLLECT [POC] QIDACANDBED 03/25/17 07:30 GLUCOSE POC LAB TO COLLECT [POC] QIDACANDBED 03/25/17 11:30 GLUCOSE POC LAB TO COLLECT [POC] QIDACANDBED 03/25/17 16:30 GLUCOSE POC LAB TO COLLECT [POC] QIDACANDBED - Plan Plan:: Assessment/Plan: #1. ASHD. Stable. #2. Generalized weakness: This is a chronic condition. #3. UTI. Urine showed rare bacteria, stable #4. DM II. Will continue with the medicine and changed to Alogliptin. #5. Atrial Fib. This is chronic will continue with Coumadin. Mostly a pacemaker rhythm #6. HTN: Will continue with meds for blood pressure control. #7. COPD: Continue with meds. #8. HLD: Continue with same meds as cholesterol is stable, Lipitor #9. BPH: Chronic continue with the medicine. #10. DJD: No med changes #11. Obesity: Will advise to lose wt. but it has been a struggle.
--- NOTE | 2017-03-19 07:56 | PCM.DCSUM1 ---
Discharge Summary - Discharge Data Discharge Date: 03/19/17 Discharge Disposition: DC[facility] Condition: Fair - Patient Summary/Data Hospital Course: Admitted for generalized weakness and near fainting at home. Hx of DM II and ASHD. - Patient Instructions Diet: Heart Healthy Diet, Diabetic Diet Activity: As Tolerated - Discharge Plan Prescriptions/Med Rec: Azithromycin [Zithromax] 500 mg IV Q24H #3 vial Home Medications: Home Meds Aspirin 325 mg PO DAILY 01/09/14 [History] DULoxetine [Cymbalta] 60 mg PO DAILY 01/09/14 [History] Digoxin 0.125 mg PO DAILY 01/09/14 [History] Docusate Sodium [Colace] 1 - 3 cap PO ASDIRECTED PRN 01/09/14 [History] Doxazosin [Cardura] 1 mg PO DAILY 01/09/14 [History] Furosemide 10 mg PO DAILY 01/09/14 [History] Lisinopril 5 mg PO DAILY 01/09/14 [History] Nitroglycerin [Nitrostat] 0.4 mg SL ASDIRECTED 01/09/14 [History] Omeprazole 20 mg PO DAILY 01/09/14 [History] Warfarin [Coumadin] 7 mg PO ASDIRECTED 01/09/14 [History] Warfarin [Coumadin] 8 mg PO ASDIRECTED 01/09/14 [History] atorvaSTATin [Lipitor] 40 mg PO BEDTIME 01/09/14 [History] Canagliflozin [Invokana] 300 mg PO DAILY 05/03/15 [History] [place]/Min Oil/Claudine/Wool Alcoh [Eucerin Creme] 1 applic TOP TID PRN 05/03/15 [ History] Linagliptin [Tradjenta] 5 mg PO DAILY 05/03/15 [History] Tamsulosin [Flomax] 0.4 mg PO DAILY 05/03/15 [History] Triamcinolone Acetonide [Triamcinolone Acetonide 0.1% Crm] 1 applic TOP TID PRN 05/03/15 [History] metFORMIN [Glucophage] 500 mg PO BID 05/03/15 [History] Omeprazole 20 mg PO DAILY 03/16/17 [History] Papaya [Papaya Enzyme] 2 each PO TID 03/16/17 [History] Alogliptin Benzoate [Alogliptin] 12.5 mg PO DAILY tablet 03/19/17 [Rx] Azithromycin [Zithromax] 500 mg IV Q24H #3 vial 03/19/17 [Rx] Referrals: Trav Clark Sr, MD [Primary Care Provider] - - Discharge Summary/Plan Comment DC Time >30 min.: Yes Discharge Summary/Plan Comment: Assessment/Plan: #1. ASHD. Stable. #2. Generalized weakness: This is a chronic condition. #3. UTI. Urine showed rare bacteria, stable #4. DM II. Will continue with the medicine and changed to Alogliptin. #5. Atrial Fib. This is chronic will continue with Coumadin. Mostly a pacemaker rhythm #6. HTN: Will continue with meds for blood pressure control. #7. COPD: Continue with meds. #8. HLD: Continue with same meds as cholesterol is stable, Lipitor #9. BPH: Chronic continue with the medicine. #10. DJD: No med changes #11. Obesity: Will advise to lose wt. but it has been a struggle. - Patient Data Vitals - Most Recent: Last Vital Signs Temp 96.0 F 03/19/17 07:05 Pulse 61 03/19/17 07:05 Resp 18 03/19/17 07:05 BP 139/66 03/19/17 07:05 Pulse Ox 94 L 03/19/17 07:05 Weight - Most Recent: 210 lb 4.8 oz I&O - Last 24 hours: Intake & Output 03/18/17 03/19/17 03/19/17 22:59 06:59 14:59 Intake Total 240 Output Total 250 400 Balance -10 -400 Lab Results - Last 24 hrs: Laboratory Results - last 24 hr 03/18/17 03/19/17 Range/Units 21:30 04:50 PT 22.2 H (9.5-12.0) sec INR 2.05 H (0.80-1.20) Urine Color Yellow Urine Appearance Clear Urine pH 5.0 (4.5-8.0) Ur Specific [place] 1.020 (1.008-1.030) Urine Protein Negative (NEGATIVE) mg/dL Urine Glucose (UA) 1000 H (NEGATIVE) mg/dL Urine Ketones Negative (NEGATIVE) mg/dL Urine Occult Blood Negative (NEGATIVE) Urine Nitrite Negative (NEGAITVE) Urine Bilirubin Negative (NEGATIVE) Urine Urobilinogen Normal (NORMAL) mg/dL Ur Leukocyte Esterase Negative (NEGATIVE) Urine RBC 0-5 (0-5) Urine WBC 0-5 (0-5) Ur Epithelial Cells Few Amorphous Sediment Few Urine Bacteria Rare Urine Mucus Moderate [facility] Results - Last 24 hrs: Microbiology 03/16/17 23:25 Aerobic Blood Culture - Preliminary Blood - Arm, Left NO GROWTH AFTER 2 DAYS Anaerobic Blood Culture - Preliminary NO GROWTH AFTER 2 DAYS 03/16/17 23:20 Aerobic Blood Culture - Preliminary Blood - Arm, Left NO GROWTH AFTER 2 DAYS Anaerobic Blood Culture - Preliminary NO GROWTH AFTER 2 DAYS Med Orders - Current: Current Medications Acetaminophen (Tylenol) 650 mg PO Q4H PRN PRN Reason: Pain/Fever Last Admin: 03/16/17 23:39 Dose: 650 mg Albuterol/Ipratropium (Duoneb 3.0-0.5 Mg/3 Ml) 3 ml NEB Q4H PRN PRN Reason: Shortness of Breath Last Admin: 03/18/17 07:53 Dose: 3 ml Aspirin (Ecotrin) 325 mg PO DAILY [facility] Last Admin: 03/18/17 09:07 Dose: 325 mg Atorvastatin Calcium (Lipitor) 40 mg PO BEDTIME [facility] Last Admin: 03/18/17 21:59 Dose: 40 mg Docusate Sodium (Colace) 100 - 300 mg PO DAILY PRN PRN Reason: Constipation Doxazosin Mesylate (Cardura) 1 mg PO DAILY [facility] Last Admin: 03/18/17 09:07 Dose: 1 mg Duloxetine HCl (Cymbalta) 60 mg PO DAILY [facility] Last Admin: 03/18/17 09:04 Dose: 60 mg Furosemide (Lasix) 10 mg PO DAILY [facility] Last Admin: 03/18/17 09:06 Dose: 10 mg Azithromycin 500 mg/ Sodium (Chloride) 250 mls @ 250 mls/hr IV Q24H [facility] Last Admin: 03/19/17 02:27 Dose: 250 mls/hr Levofloxacin/Dextrose 500 mg/ (Premix) 100 mls @ 100 mls/hr IV Q24H [facility] Last Admin: 03/19/17 01:07 Dose: 100 mls/hr Lisinopril (Prinivil) 5 mg PO DAILY [facility] Last Admin: 03/18/17 09:06 Dose: 5 mg Metformin HCl (Glucophage) 500 mg PO BIDMEALS [facility] Last Admin: 03/19/17 07:13 Dose: 500 mg Mineral Oil/White Petrolatum (Hydrocerin Crm) 0 gm TOP TID PRN PRN Reason: RASH Nitroglycerin (Nitrostat) 0.4 mg SL ASDIRECTED PRN PRN Reason: Chest Pain Non-Formulary Medication (Canagliflozin [Invokana]) 300 mg PO DAILY [facility] Non-Formulary Medication (Papaya [Papaya Enzyme]) 2 each PO TID [facility] Pantoprazole Sodium (Protonix) 40 mg PO ACBREAKFAST [facility] Last Admin: 03/19/17 07:12 Dose: 40 mg Sodium Chloride (Saline Flush) 10 ml FLUSH ASDIRECTED PRN PRN Reason: Keep Vein Open Tamsulosin HCl (Flomax) 0.4 mg PO DAILY [facility] Last Admin: 03/18/17 09:06 Dose: 0.4 mg Triamcinolone Acetonide (Triamcinolone Acetonide 0.1% Crm) 0 gm TOP TID PRN PRN Reason: Rash Warfarin Sodium 5 mg/ Warfarin (Sodium 2 mg) 7 mg PO SuTuThSa@1300 [facility] Last Admin: 03/17/17 14:10 Dose: 7 mg Warfarin Sodium 5 mg/ Warfarin (Sodium 3 mg) 8 mg PO MoWeFr@1300 [facility] Last Admin: 03/18/17 13:20 Dose: 8 mg Discontinued Medications Digoxin (Lanoxin) 125 mcg PO DAILY [facility] Furosemide (Lasix) 20 mg IVPUSH ONETIME ONE Stop: 03/17/17 16:01 Last Admin: 03/17/17 16:06 Dose: 20 mg Linagliptin (Tradjenta) 5 mg PO DAILY [facility] Last Admin: 03/18/17 09:05 Dose: 5 mg Non-Formulary Medication (Omeprazole [Omeprazole]) 20 mg PO DAILY [facility] Warfarin Sodium (Coumadin) 8 mg PO ASDIRECTED [facility] Warfarin Sodium (Coumadin) 7 mg PO ASDIRECTED [facility] *Q Meaningful Use (DIS) - VTE *Q VTE Criteria *Q: - Stroke *Q Stroke Criteria *Q: - AMI *Q AMI Criteria *Q:
[2017-03-19] MEDS: DULoxetine 30 MG Cap PO SCH (10:03)
[2017-03-19] MEDS: Tamsulosin 0.4 MG Cap.ER PO SCH (10:03)
[2017-03-19] MEDS: Doxazosin 4 MG Tab PO SCH (10:04)
[2017-03-19] MEDS: Aspirin 325 MG Tab.EC PO SCH (10:04)
[2017-03-19] MEDS: Lisinopril 5 MG Tab PO SCH (10:05)
[2017-03-19] MEDS: Furosemide 20 MG Tab PO SCH (10:05)
[2017-03-19 11:27] VITALS: BP 106/57
--- NOTE | 2017-03-20 07:48 | ECHO ---
REFERRING PRACTITIONER: Trav Clark MD 1. AO ROOT: 3.82. (NL = 2.0-3.7) 2. AORTIC VALVE EXCURSION: 3. LA: 5.34 CM (NL = 1.9-4.0) 4. RV: 3.41. (NL = .09-2.6) 5. LV ORTIZ: 5.35 (NL = 3.5-5.7) 6. LV SYST: 3.17 (NL = 2.2-4.3) 7. FRACTIONAL SHORTENIN. (2542) 8. EJECTION FRACTION: 55% to 60%. (5075) 9. IVS: 1.45 (NL = 0.6-1.1) 10. LVPW: 1.35 (NL = 0.6 1.1) INDICATION: Hypoxia evaluate left ventricular function and valvular status. By 2D echo left ventricular function appears to be normal consistent with estimated ejection fraction of 55% to 60%. Septal wall especially apical portion is severely hypokinetic. No other wall motion abnormalities identified , but there is concentric left ventricular hypertrophy. There is no pericardial effusion. There is left atrial enlargement as well as right ventricular enlargement with preserved right ventricular function. Left ventricle appears to be within normal range for size as is the aortic root. There is calcification of the aortic valve leaflets with impairment of leaflet motion, there is calcification of the mitral valve anulus in appearance consistent with previous mitral valve repair. Tricuspid and pulmonic valves appear to be structurally normal. Pacemaker wires noted in the right heart. By Doppler and color Doppler, there is elevation in estimated right ventricular pressure, there was borderline elevation and estimated right ventricular pressure 38 mmHg. There is severe tricuspid regurgitation, evidence of mild aortic stenosis with a peak velocity of 2.59 m/sec. Peak pressure gradient of 27 mmHg with a mean gradient of 17 mmHg and a calculated valve area of 1.21 cm2. There is mild MR and trace PI. IMPRESSION: 1. Normal left ventricular function. Estimated ejection fraction of 55% to 60% . 2. Specific wall motion abnormalities as described above. 3. Concentric left ventricular hypertrophy. 4. Left atrial enlargement. 5. Pacemaker wire noted in the right heart. 6. Mild right ventricular enlargement with preserved right ventricular function. 7. Borderline elevation and estimated right ventricular pressure at 38 mmHg. 8. Severe tricuspid regurgitation. 9. Mild aortic stenosis as described above. 10. Status post mitral valve repair. 11. Mild mitral regurgitation. 12. Trace pulmonary insufficiency. /[id number] CC: Trav Clark MD MTDD
== END 2017-03-19 15:05 | DRG 303 ==
LOC: JP.ED 19:41 → JP.MS 21:07
PROVIDERS: ADMIT Internal Medicine; ATTEND Internal Medicine
DX: I25.10 Atherosclerotic heart disease of native coronary artery without angina pectoris (principal); N39.0 Urinary tract infection, site not specified; I10 Essential (primary) hypertension; E11.65 Type 2 diabetes mellitus with hyperglycemia; R79.1 Abnormal coagulation profile; Z66 Do not resuscitate; I48.2 Chronic atrial fibrillation; Z79.84 Long term (current) use of oral hypoglycemic drugs; Z79.01 Long term (current) use of anticoagulants; J44.9 Chronic obstructive pulmonary disease, unspecified; E78.5 Hyperlipidemia, unspecified; N40.0 Benign prostatic hyperplasia without lower urinary tract symptoms; M19.90 Unspecified osteoarthritis, unspecified site; H91.90 Unspecified hearing loss, unspecified ear; H54.7 Unspecified visual loss; Z88.1 Allergy status to other antibiotic agents; Z88.5 Allergy status to narcotic agent; Z88.0 Allergy status to penicillin; Z88.8 Allergy status to other drugs, medicaments and biological substances; Z79.82 Long term (current) use of aspirin; R55 Syncope and collapse; R09.02 Hypoxemia; R53.1 Weakness
CPT/HCPCS: 36415; 70450; 71010; 71010-26; 80048; 80053; 81001; 82550; 82553; 82962; 84484; 85025; 85610; 87040; 93005; 93306; 93306-26; 97162-GP; 97530-GP; 99285; 99285-25; A9270-GY; J0456; J1940; J1956; J7050; J7620

== ENCOUNTER 2017-08-01 18:32 | Emergency (ER) | payer MEDICARE, MEDICAID ==
--- NOTE | 2017-08-01 19:03 | EDM.PDOC ---
ED HPI GENERAL MEDICAL PROBLEM - General Chief Complaint: General Stated Complaint: ILLNESS Time Seen by Provider: 08/01/17 19:00 Source of Information: Reports: Patient, EMS Notes Reviewed History Limitations: Reports: No Limitations - History of Present Illness INITIAL COMMENTS - FREE TEXT/NARRATIVE: pt had an episode of weakness and he nearly fell today. This came on very suddenly. He feels better at this point. Onset: Today, Sudden Duration: Hour(s): Location: Reports: Generalized, Other (pt had sudden onset of generalized weakness. ) Associated Symptoms: Reports: Weakness, Other (pt had near syncope. ) - Related Data Allergies Allergy/AdvReac Type Severity Reaction Status Date / Time Cephalosporins Allergy Hives Verified 08/01/17 18:53 codeine Allergy Hives Verified 08/01/17 18:53 Penicillins Allergy Hives Verified 08/01/17 18:53 dicydonine Allergy Cannot Uncoded 08/01/17 18:53 Remember Home Meds: Home Meds Aspirin 325 mg PO DAILY 01/09/14 [History] DULoxetine [Cymbalta] 60 mg PO DAILY 01/09/14 [History] Digoxin 0.125 mg PO DAILY 01/09/14 [History] Docusate Sodium [Colace] 1 - 3 cap PO ASDIRECTED PRN 01/09/14 [History] Doxazosin [Cardura] 1 mg PO DAILY 01/09/14 [History] Furosemide 10 mg PO DAILY 01/09/14 [History] Lisinopril 5 mg PO DAILY 01/09/14 [History] Nitroglycerin [Nitrostat] 0.4 mg SL ASDIRECTED 01/09/14 [History] Omeprazole 20 mg PO DAILY 01/09/14 [History] Warfarin [Coumadin] 8 mg PO ASDIRECTED 01/09/14 [History] atorvaSTATin [Lipitor] 40 mg PO BEDTIME 01/09/14 [History] Canagliflozin [Invokana] 300 mg PO DAILY 05/03/15 [History] [place]/Min Oil/Claudine/Wool Alcoh [Eucerin Creme] 1 applic TOP TID PRN 05/03/15 [ History] Linagliptin [Tradjenta] 5 mg PO DAILY 05/03/15 [History] Tamsulosin [Flomax] 0.4 mg PO DAILY 05/03/15 [History] Triamcinolone Acetonide [Triamcinolone Acetonide 0.1% Crm] 1 applic TOP TID PRN 05/03/15 [History] metFORMIN [Glucophage] 500 mg PO BID 05/03/15 [History] Papaya [Papaya Enzyme] 2 each PO TID 03/16/17 [History] Azithromycin [Zithromax] 500 mg IV Q24H #3 vial 03/19/17 [Rx] Rich/Polymyx B Sulf/Dexameth [Qbtckt-Llkur-Gnldnciy Eye Drop] 1 drop EYEBOTH QID 08/01/17 [History] Past Medical History HEENT History: 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, Impaired Vision Other HEENT History: Hearing aide Cardiovascular History: Reports: Afib, Hypertension Other Cardiovascular History: cardiac dysrhythmias Gastrointestinal History: Reports: None Musculoskeletal History: Reports: Arthritis Endocrine/Metabolic History: Reports: Diabetes, Type II Other Dermatologic History: light red rash noted to left lower leg - Infectious Disease History Infectious Disease History: Reports: C-Difficile, Measles, Mumps - Past Surgical History Head Surgeries/Procedures: Reports: None Other Cardiovascular Surgeries/Procedures: Pacemaker GI Surgical History: Reports: Appendectomy, Hernia Repair/Other Social & Family History - Family History Family Medical History: Noncontributory - Tobacco Use Smoking Status *Q: Never Smoker Second Hand Smoke Exposure: No - Caffeine Use Caffeine Use: Reports: Coffee - Alcohol Use Days Per Week of Alcohol Use: 0 - Recreational Drug Use Recreational Drug Use: No ED ROS GENERAL - Review of Systems Review Of Systems: See Below Constitutional: Reports: Weakness, Other (pt had an episode of weakness where he fell against the wall and thought he was going to fall. Once he got here he felt better. ) HEENT: Reports: No Symptoms Respiratory: Reports: No Symptoms Cardiovascular: Reports: No Symptoms Endocrine: Reports: No Symptoms GI/Abdominal: Reports: No Symptoms : Reports: No Symptoms Musculoskeletal: Reports: No Symptoms Neurological: Reports: No Symptoms Psychiatric: Reports: Anxiety Hematologic/Lymphatic: Reports: No Symptoms ED EXAM, GENERAL - Physical Exam Exam: See Below Free Text/Narrative:: pt arrived after having an episode of weakness at home. This came on suddenly and he fell against the wall but did not fall to the floor. Exam Limited By: No Limitations General Appearance: Alert, No Apparent Distress, Other (pt states he felt like he was back to normal. ) Ears: Normal TMs Nose: Normal Inspection Throat/Mouth: Normal Inspection Head: Atraumatic Neck: Normal Inspection Respiratory/Chest: No Respiratory Distress Cardiovascular: Regular Rate, Rhythm GI/Abdominal: Soft (Male) Exam: Deferred Rectal (Males) Exam: Deferred Back Exam: Normal Inspection Extremities: Normal Inspection Neurological: Alert, Oriented, Normal Cognition, Other (pt feels back to normal. ) Course - Vital Signs Last Recorded V/S: Last Vital Signs Temp 37.2 C 08/01/17 19:34 Pulse 60 08/01/17 19:34 Resp 18 08/01/17 19:34 BP 134/56 L 08/01/17 19:34 Pulse Ox 94 L 08/01/17 19:34 - Orders/Labs/Meds Orders: Active Orders 24 hr Category Date Time Status Cardiac Monitoring [RC] .As Directed Care 08/01/17 19:04 Active EKG Documentation Completion [RC] ASDIRECTED Care 08/01/17 19:04 Active Orthostatic Vital Signs [RC] ASDIRECTED Care 08/01/17 19:03 Active LYME AB SCREEN RFLX [REF] Stat Lab 08/01/17 19:52 Received Sodium Chloride 0.9% [Normal Saline] 1,000 ml Med 08/01/17 19:45 Active IV ASDIRECTED EKG 12 Lead [EK] Routine Ther 08/01/17 19:04 Ordered Medication Orders Sodium Chloride (Normal Saline) 1,000 mls @ 400 mls/hr IV ASDIRECTED JOHN Last Admin: 08/01/17 20:06 Dose: 400 mls/hr Labs: Laboratory Tests 08/01/17 08/01/17 08/01/17 Range/Units 18:59 18:59 18:59 WBC 9.8 (4.5-11.0) K/uL RBC 5.43 (4.30-5.90) M/uL Hgb 15.8 H (12.0-15.0) g/dL Hct 46.1 (40.0-54.0) % MCV 85 (80-98) fL MCH 29 (27-31) pg MCHC 34 (32-36) % Plt Count 169 (150-400) K/uL Neut % (Auto) 65 (36-66) % Lymph % (Auto) 20 L (24-44) % [place] % (Auto) 12 H (2-6) % Eos % (Auto) 2 (2-4) % Baso % (Auto) 1 (0-1) % PT (9.5-12.0) sec INR (0.80-1.20) Sodium 137 L (140-148) mmol/L Potassium 4.6 (3.6-5.2) mmol/L Chloride 101 (100-108) mmol/L Carbon Dioxide 27 (21-32) mmol/L Anion Gap 13.6 (5.0-14.0) mmol/L BUN 24 H (7-18) mg/dL Creatinine 1.1 (0.8-1.3) mg/dL Est Cr Clr Drug Dosing 51.93 mL/min Estimated GFR (MDRD) > 60 (>60) Glucose 190 H (74-106) mg/dL Calcium 8.8 (8.5-10.1) mg/dL Total Bilirubin 0.7 (0.2-1.0) mg/dL AST 30 (15-37) U/L ALT 40 (12-78) U/L Alkaline Phosphatase 128 H (46-116) U/L C-Reactive Protein 0.14 (0.0-0.3) mg/dL Total Protein 7.6 (6.4-8.2) g/dL Albumin 3.6 (3.4-5.0) g/dL Globulin 4.0 H (2.3-3.5) g/dL Albumin/Globulin Ratio 0.9 L (1.2-2.2) Urine Color Urine Appearance Urine pH (4.5-8.0) Ur Specific [place] (1.008-1.030) Urine Protein (NEGATIVE) mg/dL Urine Glucose (UA) (NEGATIVE) mg/dL Urine Ketones (NEGATIVE) mg/dL Urine Occult Blood (NEGATIVE) Urine Nitrite (NEGAITVE) Urine Bilirubin (NEGATIVE) Urine Urobilinogen (NORMAL) mg/dL Ur Leukocyte Esterase (NEGATIVE) Urine RBC (0-5) Urine WBC (0-5) Ur Epithelial Cells Amorphous Sediment Urine Bacteria Urine Mucus Digoxin (0.90-2.00) ng/mL 08/01/17 08/01/17 08/01/17 Range/Units 19:46 20:15 21:15 WBC (4.5-11.0) K/uL RBC (4.30-5.90) M/uL Hgb (12.0-15.0) g/dL Hct (40.0-54.0) % MCV (80-98) fL MCH (27-31) pg MCHC (32-36) % Plt Count (150-400) K/uL Neut % (Auto) (36-66) % Lymph % (Auto) (24-44) % [place] % (Auto) (2-6) % Eos % (Auto) (2-4) % Baso % (Auto) (0-1) % PT 24.0 H (9.5-12.0) sec INR 2.17 H (0.80-1.20) Sodium (140-148) mmol/L Potassium (3.6-5.2) mmol/L Chloride (100-108) mmol/L Carbon Dioxide (21-32) mmol/L Anion Gap (5.0-14.0) mmol/L BUN (7-18) mg/dL Creatinine (0.8-1.3) mg/dL Est Cr Clr Drug Dosing mL/min Estimated GFR (MDRD) (>60) Glucose (74-106) mg/dL Calcium (8.5-10.1) mg/dL Total Bilirubin (0.2-1.0) mg/dL AST (15-37) U/L ALT (12-78) U/L Alkaline Phosphatase (46-116) U/L C-Reactive Protein (0.0-0.3) mg/dL Total Protein (6.4-8.2) g/dL Albumin (3.4-5.0) g/dL Globulin (2.3-3.5) g/dL Albumin/Globulin Ratio (1.2-2.2) Urine Color Yellow Urine Appearance Clear Urine pH 5.0 (4.5-8.0) Ur Specific [place] 1.020 (1.008-1.030) Urine Protein Negative (NEGATIVE) mg/dL Urine Glucose (UA) 1000 H (NEGATIVE) mg/dL Urine Ketones Negative (NEGATIVE) mg/dL Urine Occult Blood Negative (NEGATIVE) Urine Nitrite Negative (NEGAITVE) Urine Bilirubin Negative (NEGATIVE) Urine Urobilinogen Normal (NORMAL) mg/dL Ur Leukocyte Esterase Negative (NEGATIVE) Urine RBC 0-5 (0-5) Urine WBC 0-5 (0-5) Ur Epithelial Cells Rare Amorphous Sediment Not seen Urine Bacteria Few Urine Mucus Few Digoxin 0.57 L (0.90-2.00) ng/mL Meds: Medications Generic Name Dose Route Start Last Admin Trade Name Leonardo PRN Reason Stop Dose Admin Sodium Chloride 1,000 mls @ 400 mls/hr 08/01/17 19:45 08/01/17 20:06 Normal Saline IV 400 mls/hr ASDIRECTED JOHN Administration - Re-Assessments/Exams Free Text/Narrative Re-Assessment/Exam: 08/01/17 21:47 pt had a bs of 190. His urine specfic gravity was 1020. He has good elctrolytes no sign of a UTI. His pacemaker appears to be working ok. He was given a liter of fluid. He has a niece who lives on the same floor and could possibly check on the pt. Jeannette was called and she was willing to pick him up and check on him for the next 2 days. Departure - Departure Time of Disposition: 21:53 Disposition: Home, Self-Care 01 Condition: Fair Clinical Impression: Vaso vagal episode, Dehydration - Discharge Information Referrals: Trav Clark Sr, MD [Primary Care Provider] - Forms: ED Department Discharge Care Plan Goals: encourage fluids, cont same meds, followup appt with Dr Eduardo higgins or [place]. - My Orders Last 24 Hours: My Active Orders 08/01/17 19:03 Orthostatic Vital Signs [RC] ASDIRECTED 08/01/17 19:04 Cardiac Monitoring [RC] .As Directed EKG Documentation Completion [RC] ASDIRECTED EKG 12 Lead [EK] Routine 08/01/17 19:45 Sodium Chloride 0.9% [Normal Saline] 1,000 ml IV ASDIRECTED 08/01/17 19:52 LYME AB SCREEN RFLX [REF] Stat - Assessment/Plan Last 24 Hours: My Active Orders 08/01/17 19:03 Orthostatic Vital Signs [RC] ASDIRECTED 08/01/17 19:04 Cardiac Monitoring [RC] .As Directed EKG Documentation Completion [RC] ASDIRECTED EKG 12 Lead [EK] Routine 08/01/17 19:45 Sodium Chloride 0.9% [Normal Saline] 1,000 ml IV ASDIRECTED 08/01/17 19:52 LYME AB SCREEN RFLX [REF] Stat
[2017-08-01] MEDS ORDERED: Sodium Chloride 0.9% 1,000 ML IV SCH (19:45)
[2017-08-01 21:53] VITALS: BP 129/83
== END 2017-08-01 22:25 | disposition home or self-care (01) ==
LOC: JP.ED 18:32
DX: E86.0 Dehydration (principal); R55 Syncope and collapse; I10 Essential (primary) hypertension; I48.91 Unspecified atrial fibrillation; M19.90 Unspecified osteoarthritis, unspecified site; E11.9 Type 2 diabetes mellitus without complications; Z90.49 Acquired absence of other specified parts of digestive tract; Z95.0 Presence of cardiac pacemaker; Z98.890 Other specified postprocedural states; Z79.01 Long term (current) use of anticoagulants; Z79.899 Other long term (current) drug therapy; Z79.82 Long term (current) use of aspirin; Z88.0 Allergy status to penicillin; Z88.1 Allergy status to other antibiotic agents; Z88.5 Allergy status to narcotic agent; Z88.8 Allergy status to other drugs, medicaments and biological substances; Z79.84 Long term (current) use of oral hypoglycemic drugs
CPT/HCPCS: 36415; 80053; 80162; 81001; 85025; 85610; 86140; 86618; 93005; 96360; 96361; 99285; J7040; 93010; 99284